=== PATIENT | female | born 1985 | race American Indian/Alaskan Native ===

== ENCOUNTER 2016-10-31 11:15 | Emergency (ER) | payer OTHER ==
[~2016-10-31] VITALS: Ht 162.6 cm; Wt 69.0 kg
[2016-10-31] MEDS ORDERED: ASPI81TA28 PO (11:48)
[2016-10-31 12:08] LABS: BASO % 0.4 %; BASO ABS # 0.03 K/uL (0-0.2); COMPLETE YES; EOS % 3.7 %; HEMATOCRIT 39.9 % (37-47); IG% 0.2 %; LYMPH % 30.7 %; LYMPH ABS # 2.63 K/uL (1.2-3.4); MEAN CELL VOLUME 88.7 fL (80-100); MEAN CORPUSCULAR HEMOGLOBIN 29.6 pg (25-34); MEAN CORPUSCULAR HGB CONC 33.3 g/dl (32-36); MEAN PLATELET VOLUME 11.1 fL (7.4-10.4); MONO % 8.8 %; NEUT % 56.2 %; PLATELET COUNT 254 K/uL (130-400); WHITE BLOOD COUNT 8.57 K/uL (4.8-10.8)
[2016-10-31] MEDS ORDERED: SODIUM CHLORIDE 0.9% 1000ML 1,000 ML IV STA (12:19)
[2016-10-31 12:28] LABS: ALT/SGPT 17 U/L (12-78); AST/SGOT 14 U/L (15-37); BLOOD UREA NITROGEN 9 mg/dl (7-18); BUN/CREATININE RATIO 14.6 (10-20); CALCIUM 8.5 mg/dl (8.5-10.1); CARBON DIOXIDE 28 mmol/L (21-32); CHLORIDE 106 mmol/L (98-107); GLUCOSE 89 mg/dl (70-99); POTASSIUM 4.2 mmol/L (3.5-5.1); SODIUM 138 mmol/L (136-145)
[2016-10-31 12:36] LABS: ALKALINE PHOSPHATASE 53 U/L (45-117); CKMB/CK RATIO 2.4 (0-3.0)
--- NOTE | 2016-10-31 12:41 | EMERGENCY ROOM VISIT NOTE ---
History Report prepared by Sesar: Willow Hilton Under the Supervision of: Dr. Moncho Ghotra M.D. First contact with patient: 11:34 Chief Complaint: SHOULDER PAIN Stated Complaint: LEFT SHOULDER PAIN History of Present Illness The patient is a 31 year old female who presents to the Emergency Room with complaints of constant left shoulder pain for the past week. Her pain is worsened with movement and deep inspiration. She rates her pain as a 5/10 in severity. She is also experiencing shortness of breath. [place]. She denies any leg swelling. She does have a history of a congenital heart defect repair and scar revision. The patient denies any chance of . Source of History: patient Onset: 1 week ago Position: shoulder (left) Symptom Intensity: 5/10 Timing: constant Modifying Factors (Worsening): breathing (deep inspiration), movement Associated Symptoms: + SOB Review of Systems See HPI for pertinent positives & negatives. A total of 10 systems reviewed and were otherwise negative. Past Medical & Surgical Medical Problems: (1) History of congenital heart defect Family History Diabetes mellitus Social History Smoking Status: Former Smoker Occupation Status: [employer] student Current/Historical Medications Scheduled Aspirin (Aspirin Ec), 81 MG PO WK Allergies Coded Allergies: No Known Allergies (Unverified , 10/31/16) Physical Exam Vital Signs Date Time Temp Pulse Resp B/P (MAP) Pulse Ox O2 Delivery O2 Flow Rate FiO2 10/31/16 13:27 50 17 115/53 100 Room Air 10/31/16 12:09 53 10/31/16 12:08 Room Air 10/31/16 11:53 Room Air 10/31/16 11:23 36.6 56 20 119/60 98 Room Air Physical Exam GENERAL: Patient is a healthy-appearing well-nourished 31 year old female. HEAD: Normocephalic atraumatic EYES: Ocular movements intact pupils equal and react to light OROPHARYNX mucous membranes are moist no exudates present no erythema or edema present NECK: Supple no nuchal rigidity CHEST: Good equal expansion LUNGS: Clear and equal to auscultation CARDIAC: Normal S1 and S2 ABDOMEN: Soft nontender no guarding BACK: No CVA tenderness EXTREMITIES: No pain upon palpation normal muscle strength in all groups no clubbing cyanosis or edema NEURO: Patient is following commands and answering questions appropriately. Alert and oriented x3 Cranial Nerves 2-12 grossly intact Medical Decision & Procedures ER Provider Diagnostic Interpretation: Radiology results as stated below per my review and radiologist interpretation: CHEST ONE VIEW PORTABLE HISTORY: 31 years-old Female CHEST PAIN acute atypical chest and left shoulder pain. COMPARISON: None available. TECHNIQUE: Portable upright AP view of the chest FINDINGS: Cardiac silhouette is upper limits of normal. Prior median sternotomy. No pneumothorax, pleural effusion or focal airspace consolidation. No overt pulmonary edema. The bones of the chest are grossly intact. IMPRESSION: Prior median sternotomy without acute cardiopulmonary process. The above report was generated using voice recognition software. It may contain grammatical, syntax or spelling errors. Electronically signed by: Gilbert Chang M.D. 10/31/2016 12:37 PM Dictated Date/Time: 10/31/2016 12:36 PM LEFT SHOULDER MIN 2 VIEWS ROUTINE CLINICAL HISTORY: Left shoulder pain COMPARISON: None. DISCUSSION: No fractures or dislocations are visualized. There are no destructive lesions. There are no visible periarticular calcifications. IMPRESSION: No bony abnormalities identified. Electronically signed by: Sebas Garcia M.D. 10/31/2016 1:17 PM Dictated Date/Time: 10/31/2016 1:16 PM (CHEST FOR PE) ANGIO WITH CT DOSE: 264.38 mGycm HISTORY: 31 years-old Female presents with acute left upper chest and shoulder pain TECHNIQUE: Multiple CTA images of the chest were obtained after the intravenous administration of 94 ml Optiray 320. Coronal and sagittal MIPS were obtained from the axial data set and were submitted for review. A dose lowering technique was utilized adhering to the principles of ALARA. COMPARISON: Chest radiograph of same day. FINDINGS: CTA: Heart is mildly enlarged. There is no pericardial effusion. Note is made of a bovine aortic arch. No dissection or aneurysm identified. Prior median sternotomy. There is suboptimal opacification of the pulmonary arterial tree which is only opacified to the proximal segmental branches. Distal segmental and subsegmental branches are not well opacified and are also obscured by respiratory motion. CT CHEST: No dominant thyroid nodule. No pathologic adenopathy of the chest. There is a small left pleural effusion. No pneumothorax. No focal airspace consolidation. The central airways are patent. Imaged upper abdominal structures are within normal limits. Soft tissues are unremarkable. Bones are intact. IMPRESSION: 1. Limited evaluation of the pulmonary arterial tree secondary to respiratory motion and contrast bolus timing. No central pulmonary bullous identified. No acute aortic pathology. 2. Small left pleural effusion with subsegmental left basilar atelectasis. 3. Mild cardiomegaly with evidence of prior median sternotomy. The above report was generated using voice recognition software. It may contain grammatical, syntax or spelling errors. Electronically signed by: Gilbert Chang M.D. 10/31/2016 1:14 PM Dictated Date/Time: 10/31/2016 1:09 PM Laboratory Results 10/31/16 11:48 Red Blood Count 4.50, Mean Corpuscular Volume 88.7, Mean Corpuscular Hemoglobin 29.6, Mean Corpuscular Hemoglobin Concent 33.3, Mean Platelet Volume 11.1, Neutrophils (%) (Auto) 56.2, Lymphocytes (%) (Auto) 30.7, Monocytes (%) (Auto) 8.8, Eosinophils (%) (Auto) 3.7, Basophils (%) (Auto) 0.4, Neutrophils # (Auto) 4.82, Lymphocytes # (Auto) 2.63, Monocytes # (Auto) 0.75, Eosinophils # (Auto) 0.32, Basophils # (Auto) 0.03 10/31/16 11:48 Test 10/31/16 11:48 10/31/16 11:52 White Blood Count 8.57 K/uL (4.8-10.8) Red Blood Count 4.50 M/uL (4.2-5.4) Hemoglobin 13.3 g/dL (12.0-16.0) Hematocrit 39.9 % (37-47) Mean Corpuscular Volume 88.7 fL (80-100) Mean Corpuscular Hemoglobin 29.6 pg (25-34) Mean Corpuscular Hemoglobin Concent 33.3 g/dl (32-36) Platelet Count 254 K/uL (130-400) Mean Platelet Volume 11.1 fL (7.4-10.4) Neutrophils (%) (Auto) 56.2 % Lymphocytes (%) (Auto) 30.7 % Monocytes (%) (Auto) 8.8 % Eosinophils (%) (Auto) 3.7 % Basophils (%) (Auto) 0.4 % Neutrophils # (Auto) 4.82 K/uL (1.4-6.5) Lymphocytes # (Auto) 2.63 K/uL (1.2-3.4) Monocytes # (Auto) 0.75 K/uL (0.11-0.59) Eosinophils # (Auto) 0.32 K/uL (0-0.5) Basophils # (Auto) 0.03 K/uL (0-0.2) RDW Standard Deviation 40.1 fL (36.4-46.3) RDW Coefficient of Variation 12.5 % (11.5-14.5) Immature Granulocyte % (Auto) 0.2 % Immature Granulocyte # (Auto) 0.02 K/uL (0.00-0.02) Anion Gap 4.0 mmol/L (3-11) Est Creatinine Clear Calc Drug Dose 132.0 ml/min Estimated GFR () 142.8 Estimated GFR (Non- 123.2 BUN/Creatinine Ratio 14.6 (10-20) Calcium Level 8.5 mg/dl (8.5-10.1) Total Bilirubin 0.3 mg/dl (0.2-1) Direct Bilirubin < 0.1 mg/dl (0-0.2) Aspartate Amino Transf (AST/SGOT) 14 U/L (15-37) Alanine Aminotransferase (ALT/SGPT) 17 U/L (12-78) Alkaline Phosphatase 53 U/L (45-117) Total Creatine Kinase 67 U/L (26-192) Creatine Kinase MB 1.6 ng/ml (0.5-3.6) Creatine Kinase MB Ratio 2.4 (0-3.0) Troponin I 0.220 ng/ml (0-0.045) Total Protein 7.2 gm/dl (6.4-8.2) Albumin 3.5 gm/dl (3.4-5.0) Lipase 165 U/L (73-393) Bedside D-Dimer > 450 ng/mlFEU (0-450) Labs reviewed by ED physician. Medications Administered Medications (Trade) Dose Ordered Sig/Joel Route Start Time Stop Time Status Last Admin Dose Admin Sodium Chloride 1,000 ml @ 999 mls/hr Q1H1M STAT IV 10/31/16 12:19 10/31/16 13:19 DC 10/31/16 13:19 999 MLS/HR Aspirin (Aspirin Chew) 324 mg NOW STAT PO 10/31/16 13:26 10/31/16 13:27 DC 10/31/16 13:36 324 MG ECG Indication: back/shoulder pain Rate (beats per minute): 49 Rhythm: sinus bradycardia Findings: no acute ischemic change, no ectopy ED Course 1134: Past medical records reviewed. The patient was evaluated in room B11B. A complete history and physical examination was performed. 1219: NSS 1000 ml @ 999 mls/hr IV 1325: I reassessed the patient at this time. She is feeling better and resting comfortably. I discussed the results and treatment plan with the patient. I answered all pertaining questions that she had. She expressed understanding and verbalized agreement. 1326: Aspirin 324 mg PO 1344: I spoke with Dr. Acosta. We discussed the patient's case. The patient will be evaluated by the [facility] for further management. Medical Decision Differential diagnosis: Etiologies such as infections, reactive airway disease, pneumonia, pneumothorax , COPD, CHF, cardiac ischemia, pulmonary embolism, musculoskeletal, gastrointestinal, as well as others were entertained. This is a 31-year-old female who presents emergency department complaining of left shoulder pain. The patient has an elevation in both her d-dimer as well as her troponin. She was sent for CAT scan of the chest which did not show any evidence of a PE. Patient does have a prior history of cardiac issues and had a congenital heart issue repaired with 2 was young. I did discuss case with the hospitalist service who agreed to admit the patient. Patient and family were in agreement with the treatment plan. Medication Reconcilliation Current Medication List: was personally reviewed by me Blood Pressure Screening Patient's blood pressure: Normal blood pressure Consults Time Called: 1339 Consulting Physician: Dr. Acosta Returned Call: [address] Acosta. We discussed the patient's case. The patient will be evaluated by the [facility] for further management. Impression Primary Impression: Precordial chest pain Scribe Attestation The scribe's documentation has been prepared under my direction and personally reviewed by me in its entirety. I confirm that the note above accurately reflects all work, treatment, procedures, and medical decision making performed by me. Departure Information Dispostion Being Evaluated By Hospitalist Referrals No Doctor, Assigned (PCP) Patient Instructions My [facility]
[2016-10-31] MEDS ORDERED: OPTIRAY 320 IV PRN (12:45)
--- NOTE | 2016-10-31 13:15 | DIAGNOSTIC IMAGING REPORT ---
(CHEST FOR PE) ANGIO WITH CT DOSE: 264.38 mGycm HISTORY: 31 years-old Female presents with acute left upper chest and shoulder pain TECHNIQUE: Multiple CTA images of the chest were obtained after the intravenous administration of 94 ml Optiray 320. Coronal and sagittal MIPS were obtained from the axial data set and were submitted for review. A dose lowering technique was utilized adhering to the principles of ALARA. COMPARISON: Chest radiograph of same day. FINDINGS: CTA: Heart is mildly enlarged. There is no pericardial effusion. Note is made of a bovine aortic arch. No dissection or aneurysm identified. Prior median sternotomy. There is suboptimal opacification of the pulmonary arterial tree which is only opacified to the proximal segmental branches. Distal segmental and subsegmental branches are not well opacified and are also obscured by respiratory motion. CT CHEST: No dominant thyroid nodule. No pathologic adenopathy of the chest. There is a small left pleural effusion. No pneumothorax. No focal airspace consolidation. The central airways are patent. Imaged upper abdominal structures are within normal limits. Soft tissues are unremarkable. Bones are intact. IMPRESSION: 1. Limited evaluation of the pulmonary arterial tree secondary to respiratory motion and contrast bolus timing. No central pulmonary bullous identified. No acute aortic pathology. 2. Small left pleural effusion with subsegmental left basilar atelectasis. 3. Mild cardiomegaly with evidence of prior median sternotomy. The above report was generated using voice recognition software. It may contain grammatical, syntax or spelling errors. Electronically signed by: Gilbert Chang M.D. 10/31/2016 1:14 PM Dictated Date/Time: 10/31/2016 1:09 PM
--- NOTE | 2016-10-31 13:18 | DIAGNOSTIC IMAGING REPORT ---
LEFT SHOULDER MIN 2 VIEWS ROUTINE CLINICAL HISTORY: Left shoulder pain COMPARISON: None. DISCUSSION: No fractures or dislocations are visualized. There are no destructive lesions. There are no visible periarticular calcifications. IMPRESSION: No bony abnormalities identified. Electronically signed by: Sebas Garcia M.D. 10/31/2016 1:17 PM Dictated Date/Time: 10/31/2016 1:16 PM
[2016-10-31] MEDS ORDERED: ASPIRIN 324 MG CHEW PO STA (13:26)
[2016-10-31 14:45] VITALS: O2SAT 100; Ht 162.6 cm; Wt 69.0 kg
[2016-10-31] MEDS ORDERED: ONDANSETRON INJ 2 MG/ML 2 ML VIAL IV PRN (15:15)
[2016-10-31] MEDS ORDERED: MAGNESIUM HYDROXIDE SUSP 30 ML UDC PO PRN (15:15)
[2016-10-31] MEDS ORDERED: MoRPHine SULFATE 2 MG/ML CARP IV PRN (15:15)
[2016-10-31] MEDS ORDERED: ALUMINUM/MAGNESIUM/SIMETH (MAALOX MAX) 30 ML UDC PO PRN (15:15)
[2016-10-31] MEDS ORDERED: ACETAMINOPHEN 325 MG TAB PO PRN (15:15)
[2016-10-31] MEDS ORDERED: NITROGLYCERIN 0.4 MG SL PER TAB CHARGE SL PRN (15:15)
[2016-10-31] MEDS ORDERED: POLYETHYLENE (MIRALAX) 17 GM PACK PO PRN (15:15)
[2016-10-31] MEDS ORDERED: COLCHICINE 0.6 MG TAB PO ONE (16:09)
[2016-10-31] MEDS ORDERED: IV FLUIDS COMPLETED PRN (16:30)
--- NOTE | 2016-10-31 17:31 | ECHOCARDIOGRAM REPORT ---
*NOTICE TO RECEIVING CONSTITUTION PARTY AGENCY This information is strictly Confidential and protected under [place] law. [place] law prohibits you from making any further disclosure of this information unless further disclosure is expressly permitted by the written consent of the person to whom it pertains or is authorized by law. A general authorization for the release of medical or other information is not sufficient for this purpose. Hospital accepts no responsibility if the information is made available to any other person, INCLUDING THE PATIENT. Interpretation Summary * Name: ROSSY VALLES Study Date: 10/31/2016 03:38 PM BP: 115/53 mmHg * Patient Location: [facility] HR: 54 * : 1985 (M/d/yyyy) Gender: Female Height: 64 in * Age: 31 yrs Ethnicity: NA Weight: 152 lb * Ordering Physician: Narayan Hall * Referring Physician: Self, Referred * Performed By: Belinda Olson RDCS * * Reason For Study: Elevated troponin * BSA: 1.7 m2 * Normal biventricular systolic function. * Normal chamber dimensions. * Bicuspid aortic valve with moderate stenosis and trace regurgitation. * Trace pulmonic regurgitation. * Trace mitral regurgitation. * Mild tricuspid regurgitation. Procedure Details * A complete two-dimensional transthoracic echocardiogram was performed (2D, M-mode, Doppler and color flow Doppler). Left Ventricle * The left ventricle is normal in size. * There is normal left ventricular wall thickness. * Ejection Fraction = 65-70%. * Left ventricular systolic function is normal. * The left ventricular wall motion is normal. Right Ventricle * The right ventricular systolic function is normal as assessed by tricuspid annular plane systolic excursion (TAPSE) (normal >1.5 cm). Mitral Valve * The mitral valve is normal. * There is no mitral valve stenosis. * There is trace mitral regurgitation. Tricuspid Valve * The tricuspid valve is normal. * There is no tricuspid stenosis. * There is mild tricuspid regurgitation. * Right ventricular systolic pressure is normal. Aortic Valve * The aortic valve is bicuspid. * Moderate valvular aortic stenosis. * Aortic valve area was calculated at 1.3 cm\S\2 using the continuity equation. * Dimensionless valve index 0.39. * Trace aortic regurgitation. Pulmonic Valve * The pulmonic valve is not well seen, but is grossly normal. * There is no pulmonic valvular stenosis. * Trace pulmonic valvular regurgitation. Great Vessels * The aortic root is normal size. * The aortic root and proximal ascending aorta are normal sized. Pericardium/Pleural * There is no pericardial effusion. Great Vessels * Normal inferior vena cava diameter and respiratory variation suggests normal central venous pressure. MMode 2D Measurements and Calculations IVSd 0.79 cm LVIDd 4.7 cm LVIDs 2.9 cm LVPWd 0.84 cm IVS/LVPW 0.93 FS 38.7 % EDV(Teich) 101.3 ml ESV(Teich) 31.3 ml EF(Teich) 69.1 % EDV(cubed) 102.4 ml ESV(cubed) 23.6 ml EF(cubed) 77.0 % LV mass(C)d 124.3 grams LV mass(C)dI 71.4 grams/m\S\2 SV(Teich) 69.9 ml SI(Teich) 40.2 ml/m\S\2 SV(cubed) 78.8 ml SI(cubed) 45.3 ml/m\S\2 Ao root diam 2.5 cm Ao root area 5.1 cm\S\2 LA dimension 3.0 cm asc Aorta Diam 3.0 cm LA/Ao 1.2 LVOT diam 2.0 cm LVOT area 3.3 cm\S\2 LVAd ap4 30.8 cm\S\2 LVLd ap4 6.6 cm EDV(MOD-sp4) 115.8 ml EDV(sp4-el) 122.1 ml LVAs ap4 15.9 cm\S\2 LVLs ap4 5.5 cm ESV(MOD-sp4) 37.5 ml ESV(sp4-el) 39.4 ml EF(MOD-sp4) 67.7 % EF(sp4-el) 67.7 % LVAd ap2 23.8 cm\S\2 LVLd ap2 7.2 cm EDV(MOD-sp2) 68.7 ml EDV(sp2-el) 67.1 ml LVAs ap2 12.1 cm\S\2 LVLs ap2 5.8 cm ESV(MOD-sp2) 22.0 ml ESV(sp2-el) 21.4 ml EF(MOD-sp2) 67.9 % EF(sp2-el) 68.0 % LVLd %diff 8.0 % EDV(MOD-bp) 90.1 ml LVLs %diff 6.0 % ESV(MOD-bp) 29.4 ml EF(MOD-bp) 67.3 % SV(MOD-sp4) 78.4 ml SI(MOD-sp4) 45.0 ml/m\S\2 SV(MOD-sp2) 46.7 ml SI(MOD-sp2) 26.8 ml/m\S\2 SV(MOD-bp) 60.7 ml SI(MOD-bp) 34.9 ml/m\S\2 SV(sp4-el) 82.6 ml SI(sp4-el) 47.5 ml/m\S\2 SV(sp2-el) 45.6 ml SI(sp2-el) 26.2 ml/m\S\2 Doppler Measurements and Calculations MV E max kian 123.2 cm/sec MV A max kian 79.1 cm/sec MV E/A 1.6 MV dec time 0.16 sec Ao V2 max 391.1 cm/sec Ao max PG 61.9 mmHg Ao max PG (full) 52.5 mmHg Ao V2 mean 296.7 cm/sec Ao mean PG 40.8 mmHg Ao V2 VTI 106.6 cm DIANE(V,A) 1.3 cm\S\2 DIANE(V,D) 1.3 cm\S\2 AI max kian 416.7 cm/sec AI max PG 69.5 mmHg AI dec slope 302.2 cm/sec\S\2 AI P1/2t 403.8 msec LV V1 max PG 9.3 mmHg LV V1 max 152.8 cm/sec SV(Ao) 540.2 ml SI(Ao) 310.4 ml/m\S\2 PA V2 max 126.2 cm/sec PA max PG 6.4 mmHg PA acc slope 534.8 cm/sec\S\2 PA acc time 0.18 sec PI end-d kian 100.4 cm/sec TR max kian 248.4 cm/sec PA pr(Accel) -1.81 mmHg
[2016-10-31] MEDS ORDERED: CLC6 PO (18:17)
[2016-10-31] MEDS ORDERED: MTR400 PO (18:17)
--- NOTE | 2016-10-31 18:21 | Discharge Instructions ---
Discharge Instructions Date of Service Oct 31, 2016. Admission Reason for Admission: Left Shoulder Pain Discharge Discharge Diagnosis / Problem: pericarditis (inflammation of the sac around your heart) Discharge Goals Goal(s): Decrease discomfort, Diagnostic testing, Therapeutic intervention Activity Recommendations Activity Limitations: resume your previous activity . Instructions / Follow-Up Instructions / Follow-Up your symptoms and the elevation of your cardiac enzyme (troponin) was most consistent with mild pericarditis -- this is usually brought on as an immune system reaction to a viral illness. typically it is self limited -ibuprofen and colchicine will help the process get better faster and help you feel better in the meantime -take the ibuprofen three times a day scheduled (with food) for 2 weeks, then you can reduce it to three times a day as needed (when you follow up with Dr Barron in the office next week she can assess how you're doing to make sure that schedule still fits right for you) -take the colchicine 0.6mg twice a day every day for 12 weeks (this helps prevent against a recurrence of pericarditis) -- it can cause some loose stools , although usually just at higher doses -if you have worsening of pain, if you feel lightheaded/short of breath/dizzy - we'd want you seen RIGHT AWAY --you should also take antibiotics before dental procedures - Dr Barron can talk more about that as she sees you in follow up Current Hospital Diet Patient's current hospital diet: AHA Diet (Heart Healthy), Low Sodium Diet (2gm Na) Discharge Diet Recommended Diet: Regular Diet Pending Studies Studies pending at discharge: no Medical Emergencies . Who to Call and When: Medical Emergencies: If at any time you feel your situation is an emergency, please call 911 immediately. . Non-Emergent Contact Non-Emergency issues call your: Primary Care Provider (Dr Barron 11/05 at 3:15pm. [facility] Family Medicine, [facility] ([place], [place]) Suite [facility]. [phone]) . . "Provider Documentation" section prepared by Narayan Hall. . VTE Core Measure Inpt VTE Proph given/why not?: Treatment not indicated
[2016-10-31 18:26] VITALS: BP 109/52; PULSE 54; TEMP 36.6; O2SAT 99
[2016-10-31 18:52] VITALS: BP 107/60; PULSE 55; O2SAT 99
--- NOTE | 2016-10-31 19:38 | Medical Consult ---
Consultation Date of Consultation: Oct 31, 2016. Attending Physician: Dr. Narayan Hall Reason for Consultation: Admission: elevated troponin, shoulder pain History of Present Illness Ms. Camacho is a 31y/o with hx of bicuspid aortic valve s/p repair surgery at the age of 26 who presented with L shoulder pain and sob x 1 week. Shoulder pain was worse with movement, deep inspiration and when sitting or lying down interfering with sleep; improved when standing. Associated with sob, hears heart beat in L ear occasionally. Denies leg swelling, n/v, abd pain, d/c, dysuria. Reports having a cold 2 weeks ago (rhinorrhea only). Not - menstrua cycle was 1 week ago. Came to [place] 1 week ago from [facility]. Studying at [employer]. Past Medical/Surgical History Medical Problems: (1) Precordial chest pain Status: Acute Family History Relation not specified for: Diabetes mellitus diabetes and HTN Social History Smoking Status: Former Smoker (only 1 month - [place]) Alcohol Use: none Drug Use: none Marital Status: Housing Status: lives with family Occupation Status: [employer] student Allergies Coded Allergies: No Known Allergies (Unverified , 10/31/16) Home Medications Aspirin 81mg PRN Current Inpatient Medications Current Inpatient Medications Medications (Trade) Dose Ordered Sig/Joel Route Start Time Stop Time Status Last Admin Dose Admin Ioversol (Optiray 320) 125 ml UD PRN IV 10/31/16 12:45 11/04/16 12:44 Acetaminophen (Tylenol Tab) 650 mg Q4H PRN PO 10/31/16 15:15 11/30/16 15:14 Al Hydrox/Mg Hydrox/Simethicone (Maalox Max Susp) 15 ml Q4H PRN PO 10/31/16 15:15 11/30/16 15:14 Magnesium Hydroxide (Milk Of Magnesia Susp) 30 ml Q12H PRN PO 10/31/16 15:15 11/30/16 15:14 Ondansetron HCl (Zofran Inj) 4 mg Q6H PRN IV 10/31/16 15:15 11/30/16 15:14 Nitroglycerin (Nitrostat Tab) 0.4 mg UD PRN SL 10/31/16 15:15 11/30/16 15:14 Morphine Sulfate (MoRPHine SULFATE INJ) 2 mg Q30M PRN IV 10/31/16 15:15 11/14/16 15:14 Polyethylene (Miralax Powder Packet) 17 gm DAILY PRN PO 10/31/16 15:15 11/30/16 15:14 Colchicine (Colchicine Tab) 0.6 mg BID PO 10/31/16 21:00 11/30/16 20:59 UNV Miscellaneous (Iv Fluids Completed) 1 ea PRN PRN N/A 10/31/16 16:30 10/31/17 16:29 Review of Systems Constitutional: No fever Eyes: No problem reported Respiratory: + shortness of breath Cardiovascular: No chest pain Abdomen: No pain, No nausea, No vomiting Musculoskeletal: + problem reported (L shoulder pain ) Genitourinary - Female: No dysuria, No Neurologic: + problem reported (denies dizziness) Physical Exam Date Time Temp Pulse Resp B/P (MAP) Pulse Ox O2 Delivery O2 Flow Rate FiO2 10/31/16 18:52 55 15 107/60 99 10/31/16 18:26 36.6 54 18 99 Room Air 10/31/16 17:30 55 15 107/60 99 Room Air 10/31/16 15:30 54 18 109/52 99 10/31/16 14:45 100 Room Air 10/31/16 13:27 50 17 115/53 100 Room Air 10/31/16 12:09 53 10/31/16 12:08 Room Air 10/31/16 11:53 Room Air 10/31/16 11:23 36.6 56 20 119/60 98 Room Air General Appearance: no apparent distress, + pertinent finding (able to speak in full sentenses, very comfortable and able to move without any distress) Head: normocephalic, atraumatic Eyes: normal inspection Respiratory/Chest: chest non-tender, lungs clear, normal breath sounds, no respiratory distress Cardiovascular: no edema, + systolic murmur (4/6 systolic ejection murmur with a click L sternal border) Abdomen/GI: normal bowel sounds, non tender, soft Back: no CVA tenderness Extremities/Musculoskelatal: normal inspection, no calf tenderness, no pedal edema Neurologic/Psych: alert, oriented x 3 Skin: warm/dry Laboratory Results Last 24 Hours Test 10/31/16 11:48 10/31/16 11:52 10/31/16 17:02 White Blood Count 8.57 K/uL Red Blood Count 4.50 M/uL Hemoglobin 13.3 g/dL Hematocrit 39.9 % Mean Corpuscular Volume 88.7 fL Mean Corpuscular Hemoglobin 29.6 pg Mean Corpuscular Hemoglobin Concent 33.3 g/dl Platelet Count 254 K/uL Mean Platelet Volume 11.1 fL Neutrophils (%) (Auto) 56.2 % Lymphocytes (%) (Auto) 30.7 % Monocytes (%) (Auto) 8.8 % Eosinophils (%) (Auto) 3.7 % Basophils (%) (Auto) 0.4 % Neutrophils # (Auto) 4.82 K/uL Lymphocytes # (Auto) 2.63 K/uL Monocytes # (Auto) 0.75 K/uL Eosinophils # (Auto) 0.32 K/uL Basophils # (Auto) 0.03 K/uL RDW Standard Deviation 40.1 fL RDW Coefficient of Variation 12.5 % Immature Granulocyte % (Auto) 0.2 % Immature Granulocyte # (Auto) 0.02 K/uL Sodium Level 138 mmol/L Potassium Level 4.2 mmol/L Chloride Level 106 mmol/L Carbon Dioxide Level 28 mmol/L Anion Gap 4.0 mmol/L Blood Urea Nitrogen 9 mg/dl Creatinine 0.60 mg/dl Est Creatinine Clear Calc Drug Dose 132.0 ml/min Estimated GFR () 142.8 Estimated GFR (Non- 123.2 BUN/Creatinine Ratio 14.6 Random Glucose 89 mg/dl Calcium Level 8.5 mg/dl Total Bilirubin 0.3 mg/dl Direct Bilirubin < 0.1 mg/dl Aspartate Amino Transf (AST/SGOT) 14 U/L Alanine Aminotransferase (ALT/SGPT) 17 U/L Alkaline Phosphatase 53 U/L Total Creatine Kinase 67 U/L Creatine Kinase MB 1.6 ng/ml Creatine Kinase MB Ratio 2.4 Troponin I 0.220 ng/ml 0.094 ng/ml Total Protein 7.2 gm/dl Albumin 3.5 gm/dl Lipase 165 U/L Bedside D-Dimer > 450 ng/mlFEU Erythrocyte Sedimentation Rate 18 mm/hr Assessment & Plan 31y/oF with hx of bicuspid aortic valve and repair surgery at the age of 26 followed by a scar revision surgery presented to the ED for L shoulder pain and sob x 1 week. Most consistent with pericarditis from recent viral infection given pain worse with lying down/sitting, and taking a deep breath and better with standing. Mildly elevated troponin 0.220 likely due to inflammatory reaction and improved to 0.094 five hours later prior to discharge. On EKG she was sinus bradycardic. ECHO was consistent with ECHO from [facility] on 09/14/14 and revealed a bicuspid aortic valve except with now moderate stenosis and trace regurgitation, AV area now 1.3 from 1.6 in last ECHO. CTA only noted a small L pleural effusion which could also explain the shoulder pain as it can affect the phrenic nerve associated with the diaphragm. We decided to admit the patient for observation; however, she insisted that she and her need to be in [place] for a TOEFL exam tomorrow and have a 4 year old daughter at home. Thus, a stat ECHO was completed, a repeat Troponin was also done 5 hours later which went down from 0.220 to 0.094 and patient was seen by cardiology and determined to be stable for discharge. Pt was prescribed Ibuprofen and Colchicine. Pt instructed to: -Return to go to the nearest ED/hospital if she is having worsening of shoulder pain, shortness of breath, chest pain or dizziness -Take Ibuprofen 400mg TID x 2 weeks then PRN -Take Colchicine 0.6mg BID x 2 weeks -Follow up with Dr. Barron on 11/05 at 3:15pm at [facility] -Follow up with cardiology for repeat ECHO in 6 months Resident Physician Supervision Note: I interviewed and examined the patient. Discussed with Dr. Barron and agree with findings and plan as documented in the note. Any exceptions or clarifications are listed here: None Documented By: Narayan Hall shoulder pain, tiny effusion, minor trop elevation feeling OK otherwise d/w cardiology, stat echo and input greatly appreciated vitals noted nad breathing unlabored no pallor or icterus EKG NSR without ST changes, CT notes effusion - on review VERY small echo without worrisome abnormalities, has known w aortic valve abnormality chest pain - likely mild pericarditis. since so mild and no EKG changes, etc - risk of iatrogenic harm (pneumonia, Cdiff, etc) with hospitalization outweigh the very very unlikley risk of rhythm issues. stable for home aortic stenosis - plug in to local systems for ongoing f/u stable for home, outpt f/u as above
[2016-10-31] MEDS ORDERED: COLCHICINE 0.6 MG TAB PO SCH (21:00)
--- NOTE | 2016-11-03 08:24 | CARDIOLOGY CONSULTATION REPORT ---
DATE OF CONSULTATION: 10/31/2016 REASON FOR CONSULTATION: Left upper chest pain in a patient with congenital heart disease. HISTORY OF PRESENT ILLNESS: Mrs. Arias is a 31-year-old [place] female with a history of congenital aortic valvular disease (bicuspid valve), status post open surgical repair at the age of 22, who is otherwise healthy, but now presents acutely to the [facility] Emergency Room complaining of a constant left anterior upper chest and shoulder pain, which has been present for the past week. She admits to having a cold-like illness leading up to this and those symptoms have since resolved. The patient describes this as a constant left upper chest pain for the past week, which is present continuously, which gets worse with deep inspiration, certain movements, and with position changes. She denies any associated symptoms with this, specifically denies any associated nausea, vomiting, diaphoresis, or dyspnea. She further denies any fevers, chills, cough, or sputum production. No hemoptysis. She denies any limiting cardiopulmonary symptoms attributable to valvular heart disease. She specifically denies any exertional chest pain, heaviness complaints, or pressure. She denies any exertional neck, jaw, back, or arm pain. Her current left upper chest pain does not get worse with exertion. She denies any shortness of breath, unusual dyspnea on exertion, or any recent change in exertional tolerance. She further denies any orthopnea, PND, palpitations, syncope or near syncope. She denies any post exertional lightheadedness, dizziness, weakness, or syncope. She did take a single aspirin earlier this week, but she did not seem to have much of an impact on her left upper chest and shoulder pain. Thus far in the Emergency Room, her EKG shows normal sinus rhythm with probable LVH and her troponin I level is elevated at 0.220 ng/mL with normal CK and CK-MB levels. She underwent an acute CT scan of the chest for pulmonary embolism, which was negative for any pulmonary embolism. No aortic pathology identified either. There was a small left pleural effusion noted. MEDICATIONS: None. ALLERGIES: NKDA. PAST MEDICAL HISTORY: 1. Congenital aortic valvular heart disease, appears to be in bicuspid valve, status post open surgical repair at the age of 22. 2. Currently with at least moderate Aortic Stenosis. 3. She specifically denies any history of CAD, AR, CHF, rheumatic fever, or cardiac dysrhythmias. No history of prior PE or DVT. SOCIAL HISTORY: The patient is a and accompanied by her . She has a young child at home. She is a former smoker. Currently is a student at [employer]. FAMILY HISTORY: Significant for type 2 diabetes mellitus. PHYSICAL EXAMINATION: VITAL SIGNS: Temperature is 36.6 degrees Celsius, pulse is 55 and regular, respiratory rate is 14 and unlabored, blood pressure is 115/52 and SpO2 is 100% on room air. GENERAL: The patient is in no acute distress. She is lying comfortably in room 11B currently having cardiac workup done. HEENT: Head is atraumatic and normocephalic. EOMs intact. Sclerae are anicteric. Face is symmetric. No perioral cyanosis. Mucous membranes moist. NECK: Without thyromegaly, adenopathy, or JVD. Jugular venous pressure is at the level of the clavicle. Carotid upstrokes are +2 bilaterally without bruits. CHEST AND LUNGS: Clear to auscultation throughout all lung ma. No wheezes, rales, crackles, or rhonchi. CARDIOVASCULAR: S1 and S2 are regular with a grade 3/6 basal systolic murmur with radiation to the suprasternal notch, carotids, and the left sternal border. Aortic valve closure sound is accentuated. No diastolic murmur is appreciated. PMI is nondisplaced. No lifts, heaves, or thrills. No abdominal aortic or renal bruits. ABDOMEN: Bowel sounds are present. No masses, organomegaly, or tenderness. EXTREMITIES: Without clubbing, cyanosis, or edema. Intact posterior tibial and radial pulses bilaterally. NEUROLOGIC: The patient is awake, alert and oriented. Pleasant and cooperative. Answers questions appropriately. Speech is clear. LABORATORY DATA: White blood cell count is 8.57 with a hemoglobin of 13.3 g/dL, hematocrit is 29.9%, and platelet count is 254,000. Sodium is 138 mmol/L, potassium 4.2 mmol/L, BUN is 9 mg/dL with a creatinine 0.60 mg/dL. Random glucose is 89 mg/dL. LFTs are unremarkable. Total CK is 67 with a CK-MB of 1.6. Troponin I is 0.220 ng/mL. D-dimer is greater than 450. IMAGING DATA: CT angiogram as described above. EKG shows sinus rhythm with probable LVH. No ST segment or T-wave abnormalities. No [place] interval depression. Current telemetry reveals sinus bradycardia. Echocardiogram pending. ASSESSMENT: 1. Left upper chest pain, both positional, which was both pleuritic and positional with associated small left sided pleural effusion and an elevated troponin I level. This most likely represents an acute myopericarditis, possibly viral etiology. 2. At least moderate aortic stenosis. 3. Congenital aortic valve disease, bicuspid valve, status post open surgical repair 9 years ago. 4. No evidence of acute aortic pathology. 5. No evidence of deep vein thrombosis on CT angiogram. PLAN: 1. Recommend observing / monitoring overnight. 2. Serial cardiac enzymes. 3. If this is indeed a myopericarditis, we will need to be watched for dysrhythmias. 4. Check erythrocyte sedimentation rate. 5. Monitor daily laboratories in addition to cardiac enzymes. 6. Begin colchicine 0.6 mg p.o. b.i.d. empirically for the treatment of suspected underlying myopericarditis. 7. We will continue to follow along while hospitalized. 8. We are awaiting echocardiogram results. The patient was seen and examined by me in conjunction with Mr. Matias. I agree with the above history, exam, assessment, and recommendations. Echocardiography performed today reveals moderate aortic stenosis. A bicuspid aortic valve is present. Normal left ventricular systolic function. Patient currently denies any chest pain. This resolved after receiving aspirin in the emergency department. She has no dyspnea. She states her chest pain was worse when supine or with deep breathing. It improved if she set up persisted up. Although her electrocardiogram does not reveal any ST segment elevations suggestive of pericarditis her symptoms are consistent with pericarditis. Her exam reveals no pericardial friction rub. She does have a systolic murmur consistent with aortic stenosis. Her aortic valvular closing sound is present. 3/6 crescendo decrescendo murmur 2nd right intercostal space. She also has a soft diastolic murmur consistent with the aortic regurgitation seen on echo. Repeat troponin I has decreased. The patient has had no arrhythmia is noted on monitoring. It is recommended she be discharged home from the emergency department. Discharged home on nonsteroidal anti-inflammatory with ibuprofen. Also colchicine 0.6 milligrams b.i.d.. Recommended she have a follow-up echocardiogram in 6 months. If her valve area is stable at that time the next echo could then be performed 1 year later. The symptoms that could be expected with aortic stenosis were extensively discussed with the patient by me. This included anginal-type symptoms, lightheadedness/syncope, or symptoms of heart failure. If she develops any such symptoms she was asked to contact her health care provider immediately. The above assessment, recommendations, plan were extensively discussed with the patient and with the hospitalist team. Thank you for asking us to see this patient in Cardiology consultation. ARAVIND
== END 2016-10-31 18:45 | disposition home or self-care (01) ==
LOC: C.EDB 11:18 → CANBEDREQ 15:36 → C.EDB 18:45
DX: R07.2 Precordial pain (principal); Z83.3 Family history of diabetes mellitus; Z87.891 Personal history of nicotine dependence